=== PATIENT | male | born 1995 | race Caucasian/White ===

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

== ENCOUNTER 2018-04-16 19:48 | Emergency (ER) | payer BC, OTHER ==
[2018-04-16 20:14] VITALS: BP 117/67; PULSE 116; RESP 20; TEMP 99.8; O2SAT 100
[2018-04-16 20:53] LABS: INFLUENZA A B NEGATIVE FOR FLU A/B (NEGATIVE)
--- NOTE | 2018-04-16 21:08 | C.PDOC ---
History Of Present Illness 22 year old male presents to the ED for evaluation of fever, chills, sore throat, and generalized body aches that began today in the morning. He denies nausea, vomiting, abdominal pain, diarrhea, and any other associated symptoms. Time Seen by Provider: 04/16/18 20:17 Chief Complaint (Nursing): Flu-like Symptoms History Per: Patient History/Exam Limitations: no limitations Onset/Duration Of Symptoms: Hrs Current Symptoms Are (Timing): Still Present Past Medical History Reviewed: Historical Data, Nursing Documentation, Vital Signs Vital Signs: Last Vital Signs Temp 99.8 F H 04/16/18 20:12 Pulse 116 H 04/16/18 20:12 Resp 20 04/16/18 20:12 BP 117/67 04/16/18 20:12 Pulse Ox 100 04/16/18 20:12 Family History: States: Unknown Family Hx - Social History Hx Alcohol Use: No Hx Substance Use: No - Immunization History Hx Tetanus Toxoid Vaccination: No Hx Influenza Vaccination: Yes Hx Pneumococcal Vaccination: No Review Of Systems Constitutional: Positive for: Fever (subjective.), Chills, Weakness (generalized. ) ENT: Positive for: Throat Pain (sore. ) Gastrointestinal: Negative for: Nausea, Vomiting, Abdominal Pain, Diarrhea Physical Exam - Physical Exam Appears: Well, Non-toxic, No Acute Distress Skin: Normal Color, Warm, Dry Head: Atraumatic, Normacephalic Eye(s): bilateral: Normal Inspection Ear(s): Bilateral: Normal Nose: Normal, No Discharge Oral Mucosa: Moist Throat: Erythema (mild. ), No Exudate Neck: Normal ROM, Supple Chest: Symmetrical, No Deformity Cardiovascular: Rhythm Regular, No Murmur, Other (tachycardia.) Respiratory: Normal Breath Sounds, No Rales, No Rhonchi, No Wheezing Neurological/Psych: Oriented x3, Normal Speech, Normal Cognition ED Course And Treatment O2 Sat by Pulse Oximetry: 100 (RA) Pulse Ox Interpretation: Normal Medical Decision Making Medical Decision Making: Impression: fever, sore throat, malaise likely viral Plan: -Rapid strep -Flu vaccination -Motrin -Throat culture Progress: 2100 Lab results reviewed and negative. Patient had no fever and in no respiratory distress. Vital signs stable. No nuchal rigidity or difficulty swallowing. No signs of dehydration. Patient is stable for discharge. Recommend supportive treatment for symptom relief of viral illness. Advise rest and fluids and to follow up with PMD or clinic in few days. If symptoms do not resolve in 5 days will need re-eval. Disposition Counseled Patient/Family Regarding: Diagnosis, Need For Followup, Rx Given - Disposition [facility] Disposition: HOME/ ROUTINE Disposition Time: 21:06 Condition: GOOD Additional Instructions: Lab results negative Take Motrin or Tylenol for any pain or fever every 6 hours as needed Try throat lozenges and gargles Rest and drink fluids Follow up with your doctor or clinic in one week Resultados de laboratorio negativos Susitna Motrin o Tylenol para cualquier dolor o fiebre cada 6 horas segn sea necesario Prueba las pastillas para la garganta y las grgaras. Descansar y radha lquidos. Dana un seguimiento con santiago mdico o clnica en olamide semana. Prescriptions: Benzocaine/Menthol [Cepacol Sore Throat] 1 lia MM Q2 #30 lai Ibuprofen [Motrin] 1 tab PO TID PRN #30 tab PRN Reason: Pain Instructions: Viral Pharyngitis (DC) Forms: Work Excuse Print Language: KINYARWANDA - POA Present On Arrival: None - Clinical Impression Clinical Impression: Viral pharyngitis - PA / DIRECTOR CLINICAL OPERATIONS / Resident Statement MD/DO has reviewed & agrees with the documentation as recorded. - Scribe Statement The provider has reviewed the documentation as recorded by the Scribe (Lola Garibay) All medical record entries made by the Scribe were at my direction and personally dictated by me. I have reviewed the chart and agree that the record accurately reflects my personal performance of the history, physical exam, medical decision making, and the department course for this patient. I have also personally directed, reviewed, and agree with the discharge instructions and disposition.
== END 2018-04-16 21:16 | disposition home or self-care (01) ==
LOC: C.ER 19:48
DX: J02.9 Acute pharyngitis, unspecified (principal)